=== PATIENT | female | born 1970 | race Caucasian/White ===

== ENCOUNTER 2017-09-02 17:52 | Emergency (ER) | payer MEDICAID | END 2017-09-02 23:25 | disposition home or self-care (01) | LOC: D.ER 17:52 | DX: S00.83XA Contusion of other part of head, initial encounter (principal); W19.XXXA Unspecified fall, initial encounter; Y93.89 Activity, other specified; Y92.149 Unspecified place in prison as the place of occurrence of the external cause; Z86.59 Personal history of other mental and behavioral disorders ==